=== PATIENT | female | born 1990 | race Caucasian/White ===

== ENCOUNTER 2017-12-18 18:54 | Emergency (ER) | payer SELFPAY ==
[~2017-12-18] VITALS: Ht 165.1 cm; Wt 114.0 kg
[2017-12-18 19:08] VITALS: BP 138/89
== END 2017-12-18 22:00 | disposition left against medical advice (07) ==
LOC: ER 21:47
DX: R10.9 Unspecified abdominal pain (principal); Z53.21 Procedure and treatment not carried out due to patient leaving prior to being seen by health care provider